=== PATIENT | female | born 1980 | race Caucasian/White ===

== ENCOUNTER 2017-02-21 22:58 | Emergency (ER) | payer OTHER ==
[2017-02-22 00:54] VITALS: BP 125/73
== END 2017-02-22 00:54 | disposition home or self-care (01) ==
LOC: ED 22:58
DX: T63.421A Toxic effect of venom of ants, accidental (unintentional), initial encounter (principal); L25.8 Unspecified contact dermatitis due to other agents; Z79.3 Long term (current) use of hormonal contraceptives; Y92.830 Public park as the place of occurrence of the external cause
CPT/HCPCS: J7512

== ENCOUNTER 2017-04-24 19:41 | Emergency (ER) | payer OTHER ==
[2017-04-24 23:03] VITALS: BP 130/74
== END 2017-04-24 23:03 | disposition home or self-care (01) ==
LOC: ED 19:41
DX: S90.122A Contusion of left lesser toe(s) without damage to nail, initial encounter (principal); R03.0 Elevated blood-pressure reading, without diagnosis of hypertension; W22.8XXA Striking against or struck by other objects, initial encounter; Y93.89 Activity, other specified; Y99.8 Other external cause status; Y92.89 Other specified places as the place of occurrence of the external cause